=== PATIENT | male | born 1970 | race Caucasian/White ===

== ENCOUNTER 2020-02-09 22:03 | Inpatient (IN) ==
[2020-02-09 22:32] LABS: Mean Corpuscular Hemoglobin 16.1 pg (28.0-33.3)
[2020-02-09 22:34] LABS: Basophils # 0.1 K/mcL (0.0-0.2); Basophils % 0.6 %; Eosinophils # 0.3 K/mcL (0.0-0.6); Eosinophils % 2.3 %; Hematocrit 26.3 % (37.5-50.1); Hemoglobin 6.8 g/dL (12.9-16.9); Hypochromasia Present (Not Present); Immature Granulocytes % 0.3 % (0-4); Lymphocytes # 2.7 K/mcL (0.6-4.6); Lymphocytes % 20.3 %; Mean Corpuscular HGB Conc 25.9 g/dL (31.6-35.5); Mean Corpuscular Volume 62.3 fL (83.0-100.0); Mean Platelet Volume 8.4 fL (9.4-12.4); Microcytosis Present (Not Present); Monocytes # 1.2 K/mcL (0.0-1.3); Monocytes % 9.2 %; Neutrophils # 8.8 K/mcL (1.6-8.9); Platelet Count 708 K/mcL (140-400); Red Blood Count 4.22 M/mcL (4.19-5.50); Red Cell Distribution Width 20.2 % (11.5-14.5); Segmented Neutrophils % 67.3 %; White Blood Count 13.1 K/mcL (4.3-11.1)
[2020-02-09 22:54] LABS: Alanine Aminotransferase 17 Units/L (7-52); Albumin 3.7 g/dL (3.5-5.7); Albumin/Globulin Ratio 1.1 (1.1-2.2); Alkaline Phosphatase 138 Units/L (34-104); Aspartate Amino Transferase 28 Units/L (13-39); BUN/Creatinine Ratio 9 (6-26); Bilirubin,Total 0.6 mg/dL (0.3-1.0); Blood Urea Nitrogen 7 mg/dL (6-20); Calcium 8.7 mg/dL (8.6-10.3); Carbon Dioxide 24 mEq/L (23-29); Chloride 104 mEq/L (98-107); Globulin 3.4 g/dL (2.4-3.5); Glucose 102 mg/dL (70-105); Lipase 38 Units/L (11-82); Osmolality,Calculated 278 (280-300); Potassium 4.4 mEq/L (3.5-5.1); Sodium 135 mEq/L (136-145); Total Protein 7.1 g/dL (6.4-8.9); eGFR For African Americans > 60 (> 60); eGFR For Non-African Americans > 60 (> 60)
[2020-02-09] MEDS ORDERED: Isovue-370 500 ML BOTTLE IVP ONE (23:29)
[2020-02-10 01:00] LABS: Bilirubin,Urine Negative (Negative); Blood,Urine Negative (Negative); Clarity,Urine Clear (Clear); Color,Urine Yellow (Yellow); Glucose,Urine (UA) Normal (Normal); Ketones,Urine Negative (Negative); Leukocyte Esterase,Urine Negative (Negative); Nitrite,Urine Negative (Negative); Protein,Urine Negative (Neg-Trace); Specific Gravity,Urine 1.009 (1.010-1.025); Urobilinogen,Urine Normal (Normal)
[2020-02-10] MEDS ORDERED: Ondansetron 4 MG/2 ML VIAL IVP PRN (03:25)
[2020-02-10] MEDS ORDERED: *HR* OxyCODONE/APAP 10/325 TABLET PO PRN (03:26)
[2020-02-10] MEDS: 0.9 % Sodium Chloride 1,000 ML IVC SCH ×2 (04:03→21:02)
[2020-02-10] MEDS: Piperacillin/Tazobactam 3.375 GM in 0.9 % Sodium Chloride Mini Bag 100 ML IVPB SCH ×3 (04:05→20:58)
[2020-02-10 04:48] LABS: Basophils # 0.1 K/mcL (0.0-0.2); Basophils % 0.7 %; Eosinophils # 0.2 K/mcL (0.0-0.6); Eosinophils % 2.3 %; Hematocrit 25.7 % (37.5-50.1); Hemoglobin 6.7 g/dL (12.9-16.9); Immature Granulocytes % 0.4 % (0-4); Lymphocytes # 1.9 K/mcL (0.6-4.6); Lymphocytes % 19.4 %; Mean Corpuscular HGB Conc 26.1 g/dL (31.6-35.5); Mean Corpuscular Hemoglobin 16.2 pg (28.0-33.3); Mean Corpuscular Volume 62.1 fL (83.0-100.0); Mean Platelet Volume 8.9 fL (9.4-12.4); Monocytes # 1.1 K/mcL (0.0-1.3); Monocytes % 11.4 %; Neutrophils # 6.6 K/mcL (1.6-8.9); Platelet Count 737 K/mcL (140-400); Red Blood Count 4.14 M/mcL (4.19-5.50); Red Cell Distribution Width 19.9 % (11.5-14.5); Segmented Neutrophils % 65.8 %
[2020-02-10 05:06] LABS: BUN/Creatinine Ratio 9 (6-26); Blood Urea Nitrogen 6 mg/dL (6-20); Calcium 8.7 mg/dL (8.6-10.3); Carbon Dioxide 25 mEq/L (23-29); Chloride 103 mEq/L (98-107); Glucose 100 mg/dL (70-105); Osmolality,Calculated 276 (280-300); Potassium 4.7 mEq/L (3.5-5.1); Sodium 134 mEq/L (136-145); eGFR For African Americans > 60 (> 60); eGFR For Non-African Americans > 60 (> 60)
[2020-02-10 05:18] LABS: Albumin 3.8 g/dL (3.5-5.7); Albumin/Globulin Ratio 1.2 (1.1-2.2); Bilirubin,Direct 0.1 mg/dL (0.0-0.2); Bilirubin,Indirect 0.7 mg/dL (0.0-1.0); Bilirubin,Total 0.8 mg/dL (0.3-1.0); Carcinoembryonic Antigen 1.5 ng/mL (Less than 5.0); Globulin 3.1 g/dL (2.4-3.5); Total Protein 6.9 g/dL (6.4-8.9)
[2020-02-10 05:39] LABS: Anisocytosis 1+ (Not Present); Hypochromasia Present (Not Present)
[2020-02-10 05:40] LABS: Platelet Estimate Marked Increase (Normal); Polychromasia 1+ (Not Present)
[2020-02-10] MEDS ORDERED: 0.9 % Sodium Chloride 250 ML ONE ×2 (05:47→15:51)
[2020-02-10] MEDS ORDERED: Gadolinium Contrast Agent (WT Based) IV PRN ×2 (07:07→10:52)
[2020-02-10] MEDS ORDERED: *HR* Promethazine 25 MG/ML VIAL IVP PRN (09:40)
[2020-02-10] MEDS ORDERED: *HR* LORazepam 2 MG/ML VIAL IVP PRN (09:43)
[2020-02-10 09:57] LABS: INR 1.4; Prothrombin Time 15.7 Seconds (9.4-12.1)
[2020-02-10] MEDS ORDERED: Iron Sucrose Complex 400 MG in 0.9 % Sodium Chloride 250 ML IVPB ONE (11:10)
[2020-02-10] MEDS: Pantoprazole 40 MG VIAL IVP SCH (11:26)
[2020-02-10] MEDS: Thiamine (B-1) 100 MG, Folic Acid 1 MG, MVI, adult with vitamin K 10 ML in 0.9 % Sodi... IVPB SCH (18:56)
[2020-02-11] MEDS: Piperacillin/Tazobactam 3.375 GM in 0.9 % Sodium Chloride Mini Bag 100 ML IVPB SCH ×3 (03:55→19:48)
[2020-02-11 06:31] LABS: INR 1.4; Prothrombin Time 16.2 Seconds (9.4-12.1)
[2020-02-11] MEDS: 0.9 % Sodium Chloride 1,000 ML IVC SCH ×2 (06:33→17:02)
[2020-02-11 06:34] LABS: Basophils % 0.6 %; Nucleated Red Blood Cells 0.2 /100 WBC (0); Red Cell Distribution Width 24.7 % (11.5-14.5)
[2020-02-11 06:35] LABS: Basophils # 0.1 K/mcL (0.0-0.2); Eosinophils # 0.4 K/mcL (0.0-0.6); Eosinophils % 3.9 %; Hematocrit 29.9 % (37.5-50.1); Hemoglobin 8.3 g/dL (12.9-16.9); Immature Granulocytes % 0.5 % (0-4); Lymphocytes # 2.3 K/mcL (0.6-4.6); Lymphocytes % 20.5 %; Mean Corpuscular HGB Conc 27.8 g/dL (31.6-35.5); Mean Corpuscular Hemoglobin 18.7 pg (28.0-33.3); Mean Corpuscular Volume 67.2 fL (83.0-100.0); Mean Platelet Volume 8.8 fL (9.4-12.4); Monocytes # 1.3 K/mcL (0.0-1.3); Monocytes % 12.1 %; Neutrophils # 6.9 K/mcL (1.6-8.9); Platelet Count 629 K/mcL (140-400); Red Blood Count 4.45 M/mcL (4.19-5.50); Segmented Neutrophils % 62.4 %; White Blood Count 11.1 K/mcL (4.3-11.1)
[2020-02-11 06:56] LABS: Anisocytosis 2+ (Not Present); Hypochromasia Present (Not Present); Microcytosis Present (Not Present); Polychromasia 1+ (Not Present)
[2020-02-11 06:57] LABS: Platelet Estimate Increased (Normal); Poikilocytosis 1+ (Not Present)
[2020-02-11 07:26] LABS: Alanine Aminotransferase 16 Units/L (7-52); Albumin 3.3 g/dL (3.5-5.7); Albumin/Globulin Ratio 1.2 (1.1-2.2); Alkaline Phosphatase 133 Units/L (34-104); Aspartate Amino Transferase 13 Units/L (13-39); BUN/Creatinine Ratio 4 (6-26); Bilirubin,Direct 0.2 mg/dL (0.0-0.2); Bilirubin,Indirect 0.8 mg/dL (0.0-1.0); Blood Urea Nitrogen 3 mg/dL (6-20); Calcium 8.2 mg/dL (8.6-10.3); Carbon Dioxide 23 mEq/L (23-29); Chloride 109 mEq/L (98-107); Globulin 2.7 g/dL (2.4-3.5); Glucose 89 mg/dL (70-105); Magnesium 1.9 mg/dL (1.6-2.6); Osmolality,Calculated 280 (280-300); Phosphorous 2.4 mg/dL (2.7-4.5); Potassium 3.5 mEq/L (3.5-5.1); Sodium 137 mEq/L (136-145); eGFR For African Americans > 60 (> 60); eGFR For Non-African Americans > 60 (> 60)
[2020-02-11] MEDS: Pantoprazole 40 MG VIAL IVP SCH (09:19)
[2020-02-11] MEDS ORDERED: Lidocaine -MPF 2% 2 ML VIAL ONE (10:38)
[2020-02-11] MEDS: Thiamine (B-1) 100 MG, Folic Acid 1 MG, MVI, adult with vitamin K 10 ML in 0.9 % Sodi... IVPB SCH (17:02)
[2020-02-11] MEDS: *HR* Heparin 5,000 UNIT/ML VIAL SQ SCH (18:32)
[2020-02-12] MEDS: Piperacillin/Tazobactam 3.375 GM in 0.9 % Sodium Chloride Mini Bag 100 ML IVPB SCH ×3 (03:27→19:59)
[2020-02-12] MEDS: 0.9 % Sodium Chloride 1,000 ML IVC SCH ×3 (03:28→18:13)
[2020-02-12] MEDS: *HR* Heparin 5,000 UNIT/ML VIAL SQ SCH ×2 (05:23→17:13)
[2020-02-12] MEDS ORDERED: *HR* FentaNYL (PF) 100 MCG/2 ML VIAL ONE (07:34)
[2020-02-12] MEDS ORDERED: *HR* Propofol 200 MG/20 ML VIAL IVP ONE ×2 (07:34→08:26)
[2020-02-12] MEDS ORDERED: *HR* Midazolam HCl 2 MG/2 ML VIAL ONE (07:34)
[2020-02-12] MEDS ORDERED: Lidocaine -MPF 2% 2 ML VIAL ONE (07:38)
[2020-02-12] MEDS ORDERED: Dexamethasone 4 MG/ML VIAL ONE (07:38)
[2020-02-12] MEDS ORDERED: *HR* Succinylcholine 200 MG/10 ML VIAL IVP ONE (07:38)
[2020-02-12] MEDS ORDERED: Ondansetron 4 MG/2 ML VIAL ONE (07:38)
[2020-02-12] MEDS ORDERED: *HR* Rocuronium Bromide 50 MG/5 ML VIAL ONE (07:38)
[2020-02-12] MEDS ORDERED: Lidocaine -MPF 4% 5 ML AMPUL ONE (07:39)
[2020-02-12] MEDS ORDERED: *HR* Promethazine 25 MG/ML VIAL IVP PRN ×2 (08:26→11:12)
[2020-02-12] MEDS ORDERED: *HR* Labetalol 20 MG/4 ML SYRINGE IVP PRN (08:26)
[2020-02-12] MEDS ORDERED: Ondansetron 4 MG/2 ML VIAL IVP PRN (08:26)
[2020-02-12] MEDS: Pantoprazole 40 MG VIAL IVP SCH (08:30)
[2020-02-12 09:06] LABS: Hematocrit 30.5 % (37.5-50.1); Hemoglobin 8.2 g/dL (12.9-16.9)
[2020-02-12] MEDS ORDERED: *HR* HYDROMORPHONE 2 MG/ML VIAL ONE (09:23)
[2020-02-12] MEDS ORDERED: Morphine Sulfate 2 MG/ML SYRINGE IVP PRN (10:08)
[2020-02-12] MEDS: *HR* HYDROmorphone (PF) 1 MG/ML SYRINGE IVP PRN ×2 (10:35→10:45)
[2020-02-12] MEDS ORDERED: *HR* LORazepam 2 MG/ML VIAL IVP PRN (11:12)
[2020-02-12] MEDS ORDERED: Gadolinium Contrast Agent (WT Based) IV PRN ×2 (11:12)
[2020-02-12] MEDS: Ondansetron 4 MG/2 ML VIAL IVP PRN (11:37)
[2020-02-12] MEDS ORDERED: Thiamine (B-1) 100 MG, Folic Acid 1 MG, MVI, adult with vitamin K 10 ML in 0.9 % Sodi... IVPB SCH (18:00)
[2020-02-13] MEDS: 0.9 % Sodium Chloride 1,000 ML IVC SCH ×3 (03:53→23:32)
[2020-02-13] MEDS: Piperacillin/Tazobactam 3.375 GM in 0.9 % Sodium Chloride Mini Bag 100 ML IVPB SCH ×3 (03:53→19:48)
[2020-02-13] MEDS: Ondansetron 4 MG/2 ML VIAL IVP PRN (03:56)
[2020-02-13] MEDS: *HR* Heparin 5,000 UNIT/ML VIAL SQ SCH ×2 (05:37→17:28)
[2020-02-13] MEDS: Pantoprazole 40 MG VIAL IVP SCH (07:37)
[2020-02-14 02:04] LABS: Hematocrit 32.1 % (37.5-50.1); Hemoglobin 8.7 g/dL (12.9-16.9); Mean Corpuscular HGB Conc 27.1 g/dL (31.6-35.5); Mean Corpuscular Hemoglobin 18.4 pg (28.0-33.3); Platelet Count 669 K/mcL (140-400); Red Blood Count 4.72 M/mcL (4.19-5.50); Red Cell Distribution Width 28.3 % (11.5-14.5); White Blood Count 12.3 K/mcL (4.3-11.1)
[2020-02-14 02:19] LABS: BUN/Creatinine Ratio 6 (6-26); Blood Urea Nitrogen 4 mg/dL (6-20); Calcium 8.2 mg/dL (8.6-10.3); Carbon Dioxide 23 mEq/L (23-29); Chloride 102 mEq/L (98-107); Glucose 113 mg/dL (70-105); Osmolality,Calculated 276 (280-300); Potassium 3.6 mEq/L (3.5-5.1); Sodium 134 mEq/L (136-145); eGFR For African Americans > 60 (> 60); eGFR For Non-African Americans > 60 (> 60)
[2020-02-14] MEDS: Piperacillin/Tazobactam 3.375 GM in 0.9 % Sodium Chloride Mini Bag 100 ML IVPB SCH ×3 (04:05→20:16)
[2020-02-14] MEDS: *HR* Heparin 5,000 UNIT/ML VIAL SQ SCH ×2 (05:19→17:24)
[2020-02-14] MEDS: Pantoprazole 40 MG VIAL IVP SCH (10:14)
[2020-02-14] MEDS ORDERED: *HR* OxyCODONE/APAP 5/325 TABLET PO PRN (10:39)
[2020-02-14] MEDS ORDERED: Ibuprofen 800 MG TABLET PO PRN (10:44)
[2020-02-14] MEDS: Iron Sucrose Complex 250 MG in 0.9 % Sodium Chloride 250 ML IVPB SCH (12:36)
[2020-02-15 01:08] LABS: Eosinophils % 0.8 %
[2020-02-15 01:10] LABS: Basophils % 0.4 %; Eosinophils # 0.1 K/mcL (0.0-0.6); Hematocrit 34.4 % (37.5-50.1); Hemoglobin 9.4 g/dL (12.9-16.9); Immature Granulocytes % 0.6 % (0-4); Lymphocytes % 19.1 %; Mean Corpuscular HGB Conc 27.3 g/dL (31.6-35.5); Mean Corpuscular Hemoglobin 18.8 pg (28.0-33.3); Mean Corpuscular Volume 68.7 fL (83.0-100.0); Mean Platelet Volume 8.8 fL (9.4-12.4); Monocytes # 1.1 K/mcL (0.0-1.3); Monocytes % 10.9 %; Platelet Count 646 K/mcL (140-400); Red Blood Count 5.01 M/mcL (4.19-5.50); Red Cell Distribution Width 29.2 % (11.5-14.5); Segmented Neutrophils % 68.2 %; White Blood Count 10.3 K/mcL (4.3-11.1)
[2020-02-15 01:25] LABS: BUN/Creatinine Ratio 6 (6-26); Blood Urea Nitrogen 4 mg/dL (6-20); Calcium 8.4 mg/dL (8.6-10.3); Carbon Dioxide 23 mEq/L (23-29); Chloride 103 mEq/L (98-107); Glucose 94 mg/dL (70-105); Osmolality,Calculated 279 (280-300); Potassium 3.4 mEq/L (3.5-5.1); Sodium 136 mEq/L (136-145); eGFR For African Americans > 60 (> 60); eGFR For Non-African Americans > 60 (> 60)
[2020-02-15 01:44] LABS: Basophilic Stippling 3+ (Not Present); Hypochromasia Present (Not Present); Macrocytosis Present (Not Present); Microcytosis Present (Not Present); Platelet Estimate Increased (Normal); Polychromasia 1+ (Not Present)
[2020-02-15] MEDS: Piperacillin/Tazobactam 3.375 GM in 0.9 % Sodium Chloride Mini Bag 100 ML IVPB SCH (06:22)
[2020-02-15] MEDS: *HR* Heparin 5,000 UNIT/ML VIAL SQ SCH (06:23)
[2020-02-15 06:38] VITALS: BP 146/91
[2020-02-15] MEDS: Iron Sucrose Complex 250 MG in 0.9 % Sodium Chloride 250 ML IVPB SCH (08:33)
== END 2020-02-15 11:00 | disposition home or self-care (01) | DRG 330 ==
LOC: EMEROOARM 22:03 → 3ANU 22:03
PROVIDERS: ADMIT Surgery; ATTEND Surgery